=== PATIENT | male | born 1960 | race Caucasian/White ===

== ENCOUNTER 2018-10-06 11:51 | Emergency (ER) | payer OTHER, BC ==
[~2018-10-06] VITALS: Ht 175.3 cm; Wt 126.1 kg
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
[2018-10-06] MEDS ORDERED: Lisinopril (12:51)
[2018-10-06] MEDS ORDERED: Ibuprofen (12:51)
[2018-10-06] MEDS ORDERED: Glipizide ER (12:51)
[2018-10-06] MEDS ORDERED: [UNRECOGNIZED DRUG - CODE] (12:51)
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
[2018-10-06 13:25] VITALS: BP 142/84
--- NOTE | 2018-10-06 13:35 | NUR ---
PT DISCHARGED TO HOME AFTER REVIEW OF HOME INSTRUCTIONS VERBALIZED UNDERSTOOD. LISA WRAP 3" ASPPLIED TO RIGHT HAND DR ORDERED.
== END 2018-10-06 13:25 | disposition home or self-care (01) ==
LOC: ER FS 11:54
DX: S63.91XA Sprain of unspecified part of right wrist and hand, initial encounter (principal); S30.1XXA Contusion of abdominal wall, initial encounter; R40.2142 Coma scale, eyes open, spontaneous, at arrival to emergency department; R40.2252 Coma scale, best verbal response, oriented, at arrival to emergency department; R40.2362 Coma scale, best motor response, obeys commands, at arrival to emergency department; V50.6XXA Passenger in pick-up truck or van injured in collision with pedestrian or animal in traffic accident, initial encounter
CPT/HCPCS: 73130